=== PATIENT | male | born 1975 | race Caucasian/White ===

== ENCOUNTER 2016-08-18 22:49 | Emergency (ER) | payer BC ==
[2016-08-19] MEDS ORDERED: ACETAMINOPHEN 325 MG TAB ONE (02:28)
== END 2016-08-19 03:08 | disposition home or self-care (01) ==
LOC: ER 22:49
DX: J10.1 Influenza due to other identified influenza virus with other respiratory manifestations (principal)
CPT/HCPCS: 71010; 87804